=== PATIENT | female | born 1960 | race Caucasian/White ===

== ENCOUNTER 2024-11-29 12:57 | Outpatient (AMB) | payer BC, SELFPAY ==
--- NOTE | 2024-11-29 12:58 | A.OFFPC_ITS ---
Vital Signs 11/29/24 13:06 Height 5 ft 5 in Weight 139 lb BMI 23.1 BP 106/56 L Blood Pressure Location Rt brachial Position Sitting Respiration 16 Pulse 77 Pulse Source Pulse Oximeter Pulse Oximetry (%) 98 Oxygen Delivery Method Room Air Intake Visit Reasons: New pt - see comments Electronics Design Engineer Required: No Accompanied by: Self / Same As Patient Allergies glucosamine Adverse Reaction (Mild, Verified 11/29/24 13:02) Rash Tobacco use date assessed: 11/29/24 Dental Screening Dental Screen Date: 11/29/24 Did you have a dental visit in the last 12 months?: Yes Did you have a dental problem in the last 6 months where you did not have access to dental care?: No Was dental information given to patient?: Patient has dentist HPI HPI Comments History of Present Illness Details The patient is a 63-year-old female presenting with urinary tract infection symptoms. The symptoms began last Friday, fluctuating in severity, without reaching the point where urination rothman consistently. The discomfort is variable, sometimes alleviating and sometimes worsening. There has been no increased frequency, but the patient describes it as uncomfortable. She has had similar symptoms in the past treated with antibiotics, though no specific urine cultures results were relayed to her. The patient also reports persistent lower back pain, a long-standing issue she attributes to aging. This pain is not consistent with kidney stone pain or upper flank discomfort. There is no recent history of fever or chills, but the pain location is noted to be across the lower back. The patient mentions a history of heart murmur but is unaware of the specific details such as the valve involved or the type of murmur. In terms of psychological well-being, the patient mentions experiencing anxiety, predominantly related to her son's history of addiction, although he's currently in a good place. Medical History: - Heart murmur - Anxiety related to family issues Surgical History: - Tubal ligation Medications: - Red wine, 1-2 glasses, 2-3 times a wee k (as a lifestyle choice, no medication discussed) Family History: - Father had colon cancer diagnosed at a ge 53 - Brother had throat cancer - Mother had a hysterectomy for abnormal cells - Sister and possibly a brother had adul t-onset diabetes - Brother is Social: - Resides with and son, has a [facility] living [facility] - Reports mild alcohol consumption, spec ifically red wine (1-2 glasses, 2-3 times a week) - No current tobacco or drug use; had sm oked in high school - Anxiety related to son's past addictio n issues [facility] Medical History (Updated 11/29/24 @ 13:24 by Francois Smiley MD) Screening for cervical cancer Dysuria Establishing care with new doctor, encounter for Social History Housing: House Patient Tobacco Use Status: Never used Tobacco e-Cigarette/Vaping Use: Never Used service: No Current occupational status: employed 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 1. Little interest or pleasure in doing things: not at all 2. Feeling down, depressed, or hopeless: not at all 3. Trouble falling or staying asleep, or sleeping too much: not at all 4. Feeling tired or having little energy: not at all 5. Poor appetite or overeating: not at all 6. Feeling bad about yourself - or that you are a failure or have let yourself or your family down: not at all 7. Trouble concentrating on things, such as reading the newspaper or watching television: not at all 8. Moving or speaking so slowly that other people could have noticed. Or the opposite - being so fidgety or restless that you have been moving around a lot more than usual: not at all 9. Thoughts that you would be better off or of hurting yourself in some way: not at all Total score: 0 Depression Screening Interpretation: Negative Depression Screening Done: Yes 46709 - PHQ-9 Billing: Yes Source: Developed by Drs. Junito Santiago, Danita White, Kwame Giordano and colleagues, with an educational kevin from [employer]. Thrive Questionnaire Date Thrive assessed: 11/29/24 I am a: Patient What is your living situation today?: I have a steady place to live Within the past 12 months, did the food you bought not last and you didn't have the money to get more?: Never true Within the past 12 months, did you worry whether your food would run out before you got money to buy more?: Never true Do you have trouble paying for medicines?: No Do you have trouble getting transportation to medical appointments?: No Do you have trouble paying your heating and electricity bill?: No Do you have trouble taking care of your child, family member or friend?: No Do you have trouble with day-to-day activities such as bathing, preparing meals, shopping, managing finances, etc.?: No Are you currently unemployed and looking for a job?: No Are you interested in more education?: No THRIVE Score: 0 AUDIT C Alcohol Use Questionnaire (AUDIT-C) 1. How often do you have a drink containing alcohol?: 2-3 times a week 2. How many drinks containing alcohol do you have on a typical day when you are drinking?: 1 or 2 Total Score: 3 Score Reviewed/Action Taken: Yes GAYLE-7 AMB Questionnaire GAYLE-7 Date GAYLE - 7 assessed: 11/29/24 Feeling nervous, anxious, or on edge: 0 = Not at all Not being able to stop or control worryin = Not at all Worrying too much about different things: 0 = Not at all Trouble relaxin = Not at all Being so restless that it is hard to sit still: 0 = Not at all Becoming easily annoyed or irritable: 0 = Not at all Feeling afraid as if something awful might happen: 0 = Not at all Total GAYLE-7 score (0-4 normal; 5-9 mild; 10-14 moderate; 15-21 severe): 0 Source: Developed by Drs. Junito Santiago, Danita White, Kwame Giordano and colleagues, with an educational kevin from [employer]. GAYLE-7 Assessment Billing GAYLE-7 Assessment Tool: GAYLE-7 Assessment 11103 Review of Systems Const Details: - Constitutional: Denies fever, chills - Respiratory: Denies symptoms - Cardiovascular: Reports heart murmur; denies chest pain - Gastrointestinal: Reports upcoming colonoscopy; denies nausea or vomiting - Genitourinary: Reports discomfort without burning or increased frequency, denies cramping - Musculoskeletal: Reports long-term lower back pain - Neurological/Sensory: Denies headaches, vision changes, and hearing changes - Psychiatric: Reports anxiety related to family issues; denies depression All systems reviewed & are unremarkable except as reviewed in HPI and above Physical exam (Primary Care) Vital Signs: Last Vital Signs Pulse 77 09/15/25 13:06 Resp 16 11/29/24 13:06 BP 106/56 L 11/29/24 13:06 Pulse Ox 98 11/29/24 13:06 Oxygen Delivery Method Room Air 11/29/24 13:06 BMI result Body Mass Index 23.1 Tobacco/Smoking Status: Tobacco use Status Tobacco use date assessed 11/29/24 11/29/24 13:01 Patient Tobacco Use Status Never used Tobacco 11/29/24 13:08 Tobacco use type 11/29/24 13:08 e-Cigarette/Vaping Use Never Used 11/29/24 13:08 Depression Screening Interpretation: Negative Const Other: General: +Alert and oriented, Well nourished, No acute distress. Eye: Pupils are equal, round and reactive to light, Intact accommodation, Extraocular movements are intact, Normal conjunctiva, Vision unchanged. HENT: Normocephalic, Atraumatic, Tympanic membranes are clear, Normal hearing, Oral mucosa is moist, No pharyngeal erythema, Ear canals patent. Respiratory: Lungs CTA bilaterally, No wheeze, Respirations are non-labored. Cardiovascular: Regular rate, Regular rhythm, S1 auscultated, S2 auscultated, No murmur appreciated, Good pulses equal in all extremities, Normal peripheral perfusion, No edema. Gastrointestinal: Soft, Non-tender, Non-distended, Normal bowel sounds, No organomegaly. Musculoskeletal: Normal range of motion, Normal strength, No tenderness, No swelling, No deformity, Normal gait. Integumentary: Warm, Dry, Thomas, Intact. Neurologic: Alert, Oriented, Normal sensory, Normal motor function, No focal defects, Cranial Nerves II-XII are grossly intact, Normal deep tendon reflexes. Psychiatric: Cooperative, Appropriate mood & affect, Normal judgment, Anxious about son's addiction but overall mood stable. Coding Level of Care Code New Pt Prev Care 40-64y(55631) Diagnoses Establishing care with new doctor, encounter for Z76.89 Dysuria R30.0 Additional Codes PHQ-9 - 21521 - PHQ-9 Billing: Yes ([id number]) GAYLE-7 Assessment Billing - GAYLE-7 Assessment Tool: GAYLE-7 Assessment 38668 ([id number]) Assessment & Plan Assessment & Plan (1) Establishing care with new doctor, encounter for: Comment: - Obtain Baseline Labs Code(s): Z76.89 - Persons encountering health services in other specified circumstances Category: Medical (2) Dysuria: Comment: - Repeated symptoms over multiple years and tried multiple antibiotics. Will therefore obtain a UA & Culture and treat as appropriate Code(s): R30.0 - Dysuria Category: Medical Plan: Health Maintenance: - Scheduled colonoscopy on of this month - Pap smear and mammogram are overdue, need updates - Routine blood work and screening, including baseline labs, kidney function, sugars, hepatitis panel, HIV, syphilis, cholesterol, thyroid, and vitamin D levels planned Plan During the visit, I discussed the plan to perform a urine culture and sensitivity test in order to confirm and appropriately treat any urinary tract infections. I explained that frequent antibiotic use can lead to resistance, which stresses the importance of targeted treatment. In addressing the heart murmur, I noted that despite not appreciating the murmur during the exam, monitoring is important, especially if further symptoms arise. I emphasized managing anxiety through supportive care and potential counseling given her son?s situation. Encouragement was given for proper health maintenance, including completion of the colonoscopy and updates on skipped pap smears and mammograms. Instructions were provided regarding potential observation for symptoms worsening and the importance of following up based on diagnostic test results. Orders: Orders Complete Blood Count Auto Diff Today Z76.89 - Persons encountering health services in other specified circumstances Comprehensive Met. Panel Today Z. - Persons encountering health services in other specified circumstances Hemoglobin A1c Today Z76.89 - Persons encountering health services in other specified circumstances Hepatitis A,B,C Profile Today Z76.89 - Persons encountering health services in other specified circumstances HIV Ab/Ag Today Z76.89 - Persons encountering health services in other specified circumstances Lipid Panel Today Z76.89 - Persons encountering health services in other specified circumstances Syphilis Screen Today Z76.89 - Persons encountering health services in other specified circumstances UA CC w/rflx Micro + Cult Today R30.0 - Dysuria MM tomosynthesis screening BI Today Z12.31 - Encounter for screening mammogram for malignant neoplasm of breast TSH reflex Free T4 Today Z76.89 - Persons encountering health services in other specified circumstances Vitamin D 25-OH Total Today Z76.89 - Persons encountering health services in other specified circumstances Referrals RETAIL SALES PROFESSIONAL Referral Z12.4 - Encounter for screening for malignant neoplasm of cervix Patient Instructions: - Drink plenty of fluids and consider cranberry juice to manage urinary symptoms. - Monitor back pain; apply comfort measures such as heat and gentle exercises. - Attend the scheduled colonoscopy and follow up with results. - Follow up with RETAIL SALES PROFESSIONAL for Pap smear and schedule a mammogram. - Await results of urine test and other baseline labs.
[2024-11-29 13:06] VITALS: BP 106/56; PULSE 77; RESP 16; O2SAT 98; BMI 23.1
--- OUTSIDE RECORDS SUMMARY | 2024-11-29 17:56 | XMS_ITS | Encounter Summary ---
Author Organization [facility] Address [address] [place] [phone] Phone Care Team Providers Care Change Consultant Name Role Phone Christiano Carrillo MD Primary Care Provider [phone] Karen Fuentes MD Primary Care Provide r Mariel Andrews NP Primary Care Provider [phone] Encounter Details Date Type Department Care Team (Latest Contact Info) Description 10/15/2019 Transcribe Orders [facility] [address] [place] [address] Dina Guzman NP [address] [place] [address] [email or web address] Thrombocythemia, essential (Primary Dx) Social History Tobacco Use Types Packs/Day Years Used Date Smoking Tobacco: Never Assessed Comments Unknown Sex and Gender Information Value Date Recorded Sex Assigned at Not on file Legal Sex Female 9:44 PM EDT Gender Identity Not on file Sexual Orientation Not on file documented as of this encounter Plan of Treatment Upcoming Encounters Date Type Department Care Team (Late st Contact Info) Description 12/10/2024 Procedure Pass [facility] Endoscopy Admitting Dept Virtual Department [address] [place] [address] 12/10/2024 8:00 AM EDT Hospital Encounter [facility] Admitting Dept Virtual Department [address] [place] [address] Marco Vela MD [address] [address] [email or web address] 12/10/2024 8:00 AM EDT - 12/10/2024 8:30 AM EDT Surgery [facility] Endoscopy Admitting Dept Virtual Department [address] [place] [address] Marco Vela MD [address] [address] [email or web address] COLONOSCOPY Scheduled Procedures Name Priority Associated Diagnoses Date/Ti me COLONOSCOPY FH: colon cancer 12/10/2024 8:00 AM EDT ESOPHAGOGASTRODUODENOSCOPY FH: colon cancer 12/10/2024 8:00 AM EDT documented as of this encounter Results * (ABNORMAL) Comprehensive metabolic panel (10/15/2019 3:38 PM EDT) SODIUM 140 133 - 146 mmol/L [facility] POTASSIUM 4.2 3.3 - 5.1 mmol/L [facility] CHLORIDE 101 96 - 108 mmol/L [facility] CO2 26 21 - 35 mmol/L [facility] BUN 14 6 - 19 mg/dL [facility] CREATININE 0.70 0.5 - 1.5 mg/dL [facility] GLUCOSE 107(H) 70 - 99 mg/dL [facility] ALBUMIN 4.6 3.9 - 4.8 g/dL [facility] TOTAL PROTEIN 7.2 6.5 - 8.0 g/dL [facility] CALCIUM 10.0 8.4 - 10.3 mg/dL [facility] ALKALINE PHOSPHATASE 101 39 - 117 U/L [facility] TOTAL BILIRUBIN 0.2 0.0 - 1.2 mg/dL [facility] AST 21 0 - 37 U/L [facility] ALT 23 0 - 40 U/L [facility] GLOBULIN 2.6 1 - 4.8 g/dL [facility] EGFR 97 >59 mL/min/1.7 3m2 [facility] Comment:Estimated glomerular filtration rate calculated using the CKD-EPI equation. ANION GAP 17 10 - 20 mmol/L [facility] Blood 10/15/2019 3:38 PM EDT 10/15/2019 3:40 PM EDT us Dina Humphriesedgar Guzman GOLD MARKER LAB BLOOD ORDERAB LES Final Result [address] [address] * (ABNORMAL) CBC and differential (10/15/2019 3:38 PM EDT) WBC 8.26 4.00 - 11.00 K/uL [facility] Comment:Note Reference Range updates to all CBC and Differential results. RBC 4.62 3.72 - 5.30 M/uL [facility] HGB 13.8 11.4 - 15.9 g/dL [facility] Comment:Note updated Referen ce Ranges for all CBC and Differential results. HCT 40.2 34.2 - 46.8 % [facility] PLT 391 140 - 430 K/uL [facility] MCV 87.0 78.0 - 97.0 fL [facility] MCH 29.9 25.0 - 33.0 pg [facility] MCHC 34.3 32.0 - 36.0 g/dL [facility] RDW 13.0 11.0 - 16.0 % [facility] MPV 10.6 8.4 - 12.8 fl [facility] NRBC 0.00 0 /100 WBCs [facility] ABSOLUTE NRBC 0.00 0 K/uL [facility] DIFF METHOD Auto [facility] NEUTS 56.9 43.0 - 75.0 % [facility] LYMPHS 30.5 18.2 - 47.4 % [facility] MONOS 8.0 4.00 - 11.00 % [facility] EOS 2.8 0.0 - 8.0 % [facility] BASOS 1.2 0.0 - 2.0 % [facility] Granulocytes, immature (%) 0.6 0.0 - 0.9 % [facility] ABSOLUTE NEUTS 4.70 1.80 - 7.70 K/uL [facility] ABSOLUTE LYMPHS 2.52 1.00 - 3.10 K/uL [facility] ABSOLUTE MONOS 0.66 0.20 - 0.80 K/uL [facility] ABSOLUTE EOS 0.23 0.00 - 0.80 K/uL [facility] ABSOLUTE BASOS 0.10(H) 0.00 - 0.09 K/uL [facility] Granulocytes, immature 0.05 0.00 - 0.05 K/uL [facility] Blood 10/15/2019 3:38 PM EDT 10/15/2019 3:40 PM EDT us Dina Guzman GOLD MARKER LAB BLOOD ORDERAB LES Final Result Performing Organization Address City/State/[facility] Co de Phone Number [address] [address] documented in this encounter Visit Diagnoses Diagnosis Thrombocythemia, essential- Primary Essential thrombocythemia FH: colon cancer Family history of malignant neoplasm of gastrointestinal tract documented in this encounter Additional Health Concerns Infection Onset Date Last Indicated Resolved Time CoV-Risk 10/06/2019 10/07/2019 10/20/2019 1:24 AM EDT documented as of this encounter Care Teams Change Consultant Relationship Specialty Start Date End Date Christiano Carrillo MD [address] [place] [phone] [email or web address] PCP - General Family Medicine 10/15/19 03/13/21 Karen Fuentes MD [address] [place] [address] PCP - General Internal Medicine 03/14/21 11/28/24 Mariel Andrews NP [address] [place] [address] PCP - General Nurse Practitioner 11/29/24 documented as of this encounter Additional Source Comments The information contained in this document represents components of the legal health record. It is not the complete legal health record.[facility]
--- OUTSIDE RECORDS SUMMARY | 2024-11-29 17:56 | XMS_ITS | Clinical Summary ---
Author Organization [facility] Address [address] [place] [address] Phone Care Team Providers Care Director Of Slot Operations Name Role Phone Mariel Andrews TRENCH SHOVEL OPERATOR Primary Care Provider [phone] Family History Medical History Relation Comments Colon cancer Father Alzheimer's disease Mother Hypertension Mother Relation Status Comments Father Mother Social History Tobacco Use Types Packs/Day Years Used Date Smoking Tobacco: Never Assessed Education Answer Date Recorded Are you interested in more education? Not on arina e 07/12/2022 Are you concerned about learning? Not on file 07/12/2022 No 07/12/2022 No 07/12/2022 Digital Access Answer Date Recorded No 08/12/2022 No 08/12/2022 Reliable internet access at home? Not on file 08/12/2022 Device with a working camera? Not on file Comments Unknown Sex and Gender Information Value Date Recorded Sex Assigned at Not on file Legal Sex Female 9:44 PM EDT Gender Identity Not on file Sexual Orientation Not on file Last Filed Vital Signs Vital Sign Reading Time Taken Comments Blood Pressure 118/76 07/31/2016 11:33 AM EDT Pulse - - Temperature - - Respiratory Rate - - Oxygen Saturation - - Inhaled Oxygen Concentration - - Weight 67.1 kg (148 lb) 07/31/2016 11:33 AM EDT Height 167.6 cm (5' 6 ) 07/31/2016 11:33 AM EDT Body Mass Index 23.89 07/31/2016 11:33 AM EDT Plan of Treatment Upcoming Encounters Date Type Department Care Team (Late st Contact Info) Description 12/10/2024 Procedure Pass [facility] Endoscopy Admitting Dept Virtual Department [address] [place] [address] 12/10/2024 8:00 AM EDT Hospital Encounter [facility] Admitting Dept Virtual Department [address] [place] [address] Marco Vela MD [address] [address] [email or web address] 12/10/2024 8:00 AM EDT - 12/10/2024 8:30 AM EDT Surgery [facility] Endoscopy Admitting Dept Virtual Department [address] [place] [address] Marco Vela MD [address] [place] [phone] [email or web address] COLONOSCOPY Scheduled Procedures Name Priority Associated Diagnoses Date/Ti me COLONOSCOPY FH: colon cancer 12/10/2024 8:00 AM EDT ESOPHAGOGASTRODUODENOSCOPY FH: colon cancer 12/10/2024 8:00 AM EDT Medical Devices Not on file [place] [address] [place] [address] [place] [address] [place] [address] [place] [address] [place] [address] [place] [address] [place] [address] [facility] Care Teams Director Of Slot Operations Relationship Specialty Start Date End Date Mariel Andrews NP [address] [place] [address] PCP - General Nurse Practitioner 11/29/24 Additional Source Comments The information contained in this document represents components of the legal health record. It is not the complete legal health record.[facility]
--- OUTSIDE RECORDS SUMMARY | 2024-11-29 17:56 | XMS_ITS | Encounter Summary ---
Author Organization [facility] Address [address] [place] [address] Phone Care Team Providers Care Dry Folder Cloth Name Role Phone Christiano Carrillo MD Primary Care Provider [phone] Christiano Carrillo MD Primary Care Provider [phone] Karen Fuentes MD Primary Care Provide r Mariel Andrews NP Primary Care Provider [phone] Encounter Details Date Type Department Care Team (Latest Contact Info) Description 10/06/2019 Transcribe Orders Virtual Department [address] [place] [address] Dina Guzman NP [address] [place] [address] [email or web address] Fever, unspecified fever cause (Primary Dx); Cough; Myalgia; Diarrhea, unspecified type Social History Tobacco Use Types Packs/Day Years [...] Pass [facility]oscopy Admitting Dept Virtual Department [address] [place] [address] 12/10/2024 8:00 AM EDT Hospital Encounter [facility]oscopy Admitting Dept Virtual Department [address] [place] [address] Marco Vela MD [address] [address] [email or web address] 12/10/2024 8:00 AM EDT - 12/10/2024 8:30 AM EDT Surgery [facility]oscopy Admitting Dept Virtual Department [address] [place] [address] Marco Vela MD [address] [address] [email or web address] COLONOSCOPY Pending Results Name Type Priority Associated Diagnoses Date /Time COVID-19 PCR Order Lab Routine Fever, unspecified fever cause Cough Myalgia Diarrhea, unspecified type 10/07/2019 1:22 PM EDT Scheduled Procedures Name Priority Associated Diagnoses Date/Ti me COLONOSCOPY FH: colon cancer 12/10/2024 8:00 AM EDT ESOPHAGOGASTRODUODENOSCOPY FH: colon cancer 12/10/2024 8:00 AM EDT documented as of this encounter Visit Diagnoses Diagnosis Fever, unspecified fever cause- Primary Cough Myalgia Unspecified myalgia and myositis Diarrhea, unspecified type FH: colon cancer Family history of malignant neoplasm of gastrointestinal tract documented in this encounter Additional Health Concerns Infection Onset Date Last Indicated Resolved Time CoV-Risk 10/06/2019 10/07/2019 10/20/2019 1:24 AM EDT documented as of this encounter Care Teams Dry Folder Cloth Relationship Specialty Start Date End Date Christiano Carrillo MD [email or web address] PCP - General 03/20/17 10/14/19 Christiano Carrillo MD [address] [place] [phone] [email or web address] PCP - General Family Medicine 10/15/19 03/13/21 Karen Fuentes MD [address] [place] [address] PCP - General Internal Medicine 03/14/21 11/28/24 Mariel Andrews NP [address] [place] [address] [place] [address] PCP - General Nurse Practitioner 11/29/24 documented as of this encounter Additional Source Comments The information contained in this document represents components of the legal health record. It is not the complete legal health record.[facility]
--- OUTSIDE RECORDS SUMMARY | 2024-11-29 17:56 | XMS_ITS | Encounter Summary ---
Author Organization [facility] Address [address] [place] [address] Phone Care Team Providers Care Pan Pusher Name Role Phone Karen Fuentes MD Primary Care Provide r Mariel Andrews NP Primary Care Provider [phone] Encounter Details Date Type Department Care Team (Latest Contact Info) Description 11/02/2021 Transcribe Orders Virtual Department [address] [place] [place] [phone] Ruth Lerma NP [address] [place] [address] [email or web address] (dyspnea on exertion) (Primary Dx) Social History Tobacco Use Types [...] Pass [facility] Admitting Dept Virtual Department [address] [place] [address] 12/10/2024 8:00 AM EDT Hospital Encounter [facility] Admitting [facility] Virtual Department [address] [place] [address] Marco Vela MD [address] [address] 12/10/2024 8:00 AM EDT - 12/10/2024 8:30 AM EDT Surgery [facility]oscopy Admitting Dept Virtual Department [address] [place] [address] Marco Vela MD [address] [address] [email or web address] COLONOSCOPY Scheduled Procedures Name Priority Associated Diagnoses Date/Ti me COLONOSCOPY FH: colon cancer 12/10/2024 8:00 AM EDT ESOPHAGOGASTRODUODENOSCOPY FH: colon cancer 12/10/2024 8:00 AM EDT documented as of this encounter Visit Diagnoses Diagnosis TONG (dyspnea on exertion)- Primary Other dyspnea and respiratory abnormality FH: colon cancer Family history of malignant neoplasm of gastrointestinal tract documented in this encounter Care Teams Pan Pusher Relationship Specialty Start Date End Date Karen Fuentes MD [address] [place] [address] PCP - General Internal Medicine 03/14/21 11/28/24 Mariel Andrews NP [address] [place] [address] [place] [address] PCP - General Nurse Practitioner 11/29/24 documented as of this encounter Additional Source Comments The information contained in this document represents components of the legal health record. It is not the complete legal health record.[facility]
== END 2024-11-29 13:25 | disposition home or self-care (01) ==
LOC: HO.HMCHD 12:57
PROVIDERS: PCP Student in an Organized Health Care Education/Training Program; Visit Provider Student in an Organized Health Care Education/Training Program
DX: Z00.00 Encounter for general adult medical examination without abnormal findings (principal); R30.0 Dysuria; Z76.89 Persons encountering health services in other specified circumstances

== ENCOUNTER 2024-11-29 12:57 | Outpatient (REF) | payer BC, SELFPAY ==
[2024-11-29 13:46] LABS: MANUAL DIFF FLAG NO
[2024-11-29 13:54] LABS: Hematocrit 38.1 % (37.0-47.0); Hemoglobin 13.4 g/dl (12.0-16.0); Imm Gran Abs Auto 0.02 X10*3/uL (0.00-0.03); Imm Gran Pct Auto 0.2 % (0.0-0.4); Lymphocytes Absolute Auto 1.6 X10*3/uL (1.2-4.9); Mean Corpuscular HGB Conc 35.2 g/dl (31.0-35.0); Mean Corpuscular Hemoglobin 30.7 pg (27.0-33.0); Mean Corpuscular Volume 87.4 fL (80.0-98.0); NRBC Abs Auto 0.000 X10*3/uL (0.0-0.012); NRBC Pct Auto 0.0 /100WBC (0.0-0.2); Platelet Count 200 X10*3/uL (160-400); Red Blood Count 4.36 X10*6/uL (4.20-5.50); White Blood Count 8.9 X10*3/uL (4.8-10.8)
[2024-11-29 14:04] LABS: Appearance Urine Clear; Glucose Urine UA Negative (Negative); PH 6.5 (5.0-9.0); Specific Gravity - Urine <= 1.005 (1.005-1.025); UMIC TRIGGER UACC YES
[2024-11-29 14:16] LABS: UACC Culture Trigger YES
[2024-11-29 14:40] LABS: Alanine Aminotransferase 25 U/L (0-31); Albumin Level 4.5 g/dL (3.5-5.0); Alkaline Phosphatase 89 U/L (39-117); Anion Gap 11 (12-20); Aspartate Amino Transferase 34 U/L (5-31); Blood Urea Nitrogen 8 mg/dL (9-16); Calcium 9.5 mg/dL (8.4-10.2); Carbon Dioxide 26 mmol/L (22-29); Chloride 107 mmol/L (96-108); Cholesterol 152 mg/dL (<200); Estimated Glomerular Filt Rate > 60; HDL Cholesterol 49 mg/dL (>40); Potassium 4.0 mmol/L (3.3-5.1); Sodium 140 mmol/L (135-145); Total Protein 7.1 g/dL (6.5-8.0); Triglycerides 141 mg/dL (<150)
[2024-11-30 08:27] LABS: HBS Num1 77.29 mIU/mL (0-7.99); HBc Num1 0.10 S/CO (0.00-0.79); HBsAGNum1 0.36 S/CO (0.00-0.99); HIV Num 1 0.07 S/CO (0.00-0.99); Hepatitis A Antibody IgM 0.13 Index (0-0.79); Hepatitis B Surface Antigen Negative (Negative); ~HepC Num1 0.10 S/CO (0.00-0.79); ~Hepatitis A Antibody IgM Nonreactive (Nonreactive); ~Hepatitis B Surface Antibody REACTIVE (Nonreactive); ~Hepatitis C Antibody Nonreactive (Nonreactive)
[2024-11-30 08:59] LABS: Syphilis Screen Nonreactive (Nonreactive)
== END 2024-11-29 12:58 | disposition home or self-care (01) ==
LOC: HO.LAB 12:57
PROVIDERS: PCP Student in an Organized Health Care Education/Training Program; Visit Provider Student in an Organized Health Care Education/Training Program
DX: Z76.89 Persons encountering health services in other specified circumstances (principal); R30.0 Dysuria
CPT/HCPCS: 36415; 80053; 80061; 81001; 81003; 82306; 83036; 84443; 85025; 86704; 86706; 86709; 86780; 86803; 87086; 87088; 87186; 87340; 87389; 96127

== ENCOUNTER 2025-02-08 06:57 | Day surgery (SDC) | payer BC, SELFPAY ==
[2025-02-04 13:57] VITALS: BMI 23.1
[2025-02-08 07:12] VITALS: BMI 23.0
[2025-02-08] MEDS: Lactated Ringers 1,000 ML 100 ML IVCONT (07:18)
[2025-02-08 07:25] VITALS: BP 134/70; PULSE 76; RESP 18; TEMP 36.7; O2SAT 98
--- NOTE | 2025-02-08 07:50 | MHC.SHP ---
Pre-Procedural Eval Section A - 24 Hr Update-Section A only Date of Service: 02/08/25 The patient is an INPATIENT: No The patient has been examined within 24 hours of the surgical procedure. The History & Physical has been completed within 30 days and I have reviewed it.: No Section B - Complete if H&P > 30 days Chief Complaint: screening Details of Present Illness: Fam hx of CRC in father in his 50s Present Medications: see Short Stay Collaborative assessment Medical History: No relevant PMH Allergies: Allergies Allergy/AdvReac Type Severity Reaction Status Date / Time glucosamine AdvReac Mild Rash Verified 02/08/25 07:14 Review of Systems Review of Systems Comment: Ten point ROS negative Exam Exam Comment: Gen appear: No acute distress HEENT: no icterus Chest: No overt resp distress Abd: soft, nontender, nondistended Psych: Stable affect, answering questions appropriately Neuro: A/Ox3 noted to move all extremities spontaneously Ext: no peripheral edema Plan Diagnosis/Plan: Unchanged I have reviewed the history and physical and performed a pertinent physical examination on my patient. No changes have occurred unless specified. Time Spent With Patient Time: Total time managing care of this patient today ____ minutes.
--- NOTE | 2025-02-08 08:15 | HO.ANESPROP2 ---
Documented by User: Rekha Brian NP 02/07/25 11:47 HPI - Anesthesia Eval Consult details Narrative: 64 yr old female for colonoscopy PMFSH Active Problems Active Problems: All Active Problems Establishing care with new doctor, encounter for (Acute) Screening for cervical cancer (Acute) Dysuria (Acute) Past Medical History Medical History Screening for cervical cancer Dysuria Surgical History Surgical History (Updated 02/08/25 @ 07:14 by Kavita Jaramillo RN) Hx of colonoscopy Hx of tubal ligation Social History Social History Housing: House Are you a primary neurocritical care physician to a significant other at home: No Do you presently have visiting nurse or other home services: No Patient Tobacco Use Status: Former Tobacco user e-Cigarette/Vaping Use: Never Used Have you been hit, kicked, punched, or otherwise hurt by someone within the past year? 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 Allergies Allergy/AdvReac Type Severity Reaction Status Date / Time glucosamine AdvReac Mild Rash Verified 02/08/25 07:14 Home Medications ?Medication ?Instructions ?Recorded ?Confirmed ?Last Taken ?Type cholecalciferol (vitamin D3) 25 25 mcg PO DAILY 11/29/24 02/04/25 Unknown History mcg (1,000 unit) capsule d-mannose 500 mg capsule 500 mg PO DAILY 11/29/24 02/04/25 Unknown History multivitamin 1 tab PO DAILY 11/29/24 02/04/25 Unknown History omega 0-tqf-ezw-fish oil 300 1 cap PO DAILY 11/29/24 02/04/25 02/06/25 History mg-1,000 mg capsule (Fish Oil) Exam Height,Weight and Vital Signs: Height 5 ft 5 in Weight 63.049 kg Pertinent Lab Results Pertinent Lab Results: Laboratory Tests 11/29/24 13:43 WBC 8.9 RBC 4.36 Hgb 13.4 Hct 38.1 Plt Count 200 Sodium 140 Potassium 4.0 BUN 8 L Creatinine 0.64 Documented by User: Susannah Pak DO 02/08/25 08:16 [facility] Past Medical History Medical History Screening for cervical cancer Dysuria Family History Family history of problems with anesthesia: No Surgical History Surgical History (Updated 02/08/25 @ 07:14 by Kavita Jaramillo RN) Hx of colonoscopy Hx of tubal ligation History of Problems with Anesthesia: No Social History Social History Housing: House Are you a primary neurocritical care physician to a significant other at home: No Do you presently have visiting nurse or other home services: No Patient Tobacco Use Status: Former Tobacco user e-Cigarette/Vaping Use: Never Used Have you been hit, kicked, punched, or otherwise hurt by someone within the past year? 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 Allergies Allergy/AdvReac Type Severity Reaction Status Date / Time glucosamine AdvReac Mild Rash Verified 02/08/25 07:14 Home Medications ?Medication ?Instructions ?Recorded ?Confirmed ?Last Taken ?Type cholecalciferol (vitamin D3) 25 25 mcg PO DAILY 11/29/24 02/04/25 Unknown History mcg (1,000 unit) capsule d-mannose 500 mg capsule 500 mg PO DAILY 11/29/24 02/04/25 Unknown History multivitamin 1 tab PO DAILY 11/29/24 02/04/25 Unknown History omega 9-pfx-opv-fish oil 300 1 cap PO DAILY 11/29/24 02/04/25 02/06/25 History mg-1,000 mg capsule (Fish Oil) Exam Exam Date and Time: 02/08/25 0815 Height,Weight and Vital Signs: Height 5 ft 5 in Weight 63.049 kg Height 5 ft 5 in Weight 62.596 kg Vital Signs Temperature 98.1 F 02/08/25 07:25 Pulse Rate 76 02/08/25 07:25 Respiratory Rate 18 02/08/25 07:25 Blood Pressure 134/70 02/08/25 07:25 Pulse Oximetry 98 02/08/25 07:25 Oxygen Delivery Method Room Air 02/08/25 07:25 Temperature 98.1 F 02/08/25 07:25 Pulse Rate 76 02/08/25 07:25 Respiratory Rate 18 02/08/25 07:25 Blood Pressure 134/70 02/08/25 07:25 Pulse Oximetry 98 02/08/25 07:25 Oxygen Delivery Method Room Air 02/08/25 07:25 Airway Mallampati Class: I TM Dist: >3cm Neck ROM: Full Loose/Missing/Broken Teeth: No (patient denies any loose or broken teeth) Heart: S1S2 Lungs: CTAB Assessment and Plan Assessment Anesthesia Assessment: Anesthesia Plan Discussed and Chart Reviewed Final Anesthetic Review Family History of Problems with Anesthesia: No History of Problems with Anesthesia: No NPO: Yes ASA Class: I Final Preanesthetic Review: No Changes in Pt Med Stat, Meds/Allgs Chart Reviewed, Consent Obtained/Reviewed and Anes Risks/Benef Reviewed Patient Risk: Low Procedure Risk: Low Anesthetic Plan Anesthetic Plan: MAC: and Agree w/ Assess. and Plan Disposition: Standard PACU
--- NOTE | 2025-02-08 08:56 | P.OPN-COLO_ITS ---
Colonoscopy Operative Note Operative Note Date of Service: 02/08/25 Narrative: Procedure: Colonoscopy Indication: Screening, fam hx of CRC Endoscopist: Valerie Samaniego MD Anesthesia Provider: Yosvany Barrett CRNA Anesthesia type: MAC Instrument: Olympus [id number]-[id number] Consent: Indication, risks vs benefits, and alternatives were discussed with the patient who gave written informed consent to proceed. EKG, pulse, pulse oximetry and blood pressure were monitored throughout the procedure. Please see anesthesia flowsheet. Procedure: The patient was brought to the procedure room and placed in the left lateral decubitus position. IV medications were administered by the anesthesia provider in attendance. A digital rectal exam was performed which was normal. A distal attachment cap was affixed to the tip of the colonoscope which was then inserted through the anus and advanced through the colon to the cecum at 75 cm,and terminal ileum. Appendiceal orifice and ileocecal valve were identified. Mucosa was carefully examined under high definition white light as the instrument was slowly withdrawn in a retrograde panoramic fashion. Retroflexion was performed in rectum. The procedure was not difficult. There were no immediate obvious complications. The quality of the prep was BBPS: 3+2+3 = adequate Withdrawal time 15 minutes. Limitations: No limitations. Findings: Mucosa: Normal to cecum and terminal ileum. Protruding lesions: * 1 sessile polyp of size 3 mm in transverse colon. Cold forceps polypectomy was performed. The polyp was completely removed and retrieved. * Medium internal hemorrhoids without stigmata of recent bleeding. Excavated lesions: * Moderate diverticulosis of sigmoid colon. Impression: 1. Normal colon and terminal ileum mucosa 2. Total of 1 polyp removed 3. Diverticulosis 4. Internal hemorrhoids Recommendations: - Follow path results. - Repeat colonoscopy in 5 years due to family history.
[2025-02-08 09:00] VITALS: BP 98/52; PULSE 80; RESP 12; TEMP 36.2; O2SAT 97
[2025-02-08 09:05] VITALS: BP 103/55; PULSE 88; RESP 14; O2SAT 99
[2025-02-08 09:10] VITALS: BP 119/67; PULSE 80; RESP 12; O2SAT 98
[2025-02-08 09:15] VITALS: BP 121/69; PULSE 69; RESP 14; TEMP 36.2; O2SAT 99
== END 2025-02-08 09:40 | disposition home or self-care (01) ==
PROVIDERS: PCP Student in an Organized Health Care Education/Training Program; Visit Provider Internal Medicine
PROC: 0DJD8ZZ Inspection of Lower Intestinal Tract, Via Natural or Artificial Opening Endoscopic (ICD-10-PCS; CPT 45378; principal; 2025-02-08 08:20)
DX: Z12.11 Encounter for screening for malignant neoplasm of colon (principal); Z80.0 Family history of malignant neoplasm of digestive organs; K64.8 Other hemorrhoids; K57.30 Diverticulosis of large intestine without perforation or abscess without bleeding; K63.5 Polyp of colon
CPT/HCPCS: 45380; 88305; J2003; J2704

== ENCOUNTER → 2025-02-08 06:57 | Outpatient (BNV) | payer BC, SELFPAY | PROVIDERS: PCP Student in an Organized Health Care Education/Training Program; Visit Provider Internal Medicine | DX: Z12.11 Encounter for screening for malignant neoplasm of colon (principal); K63.5 Polyp of colon; K57.30 Diverticulosis of large intestine without perforation or abscess without bleeding; K64.8 Other hemorrhoids | CPT/HCPCS: 45380 ==

== ENCOUNTER 2025-03-15 13:53 | Outpatient (AMB) | payer BC, SELFPAY ==
--- NOTE | 2025-03-15 14:00 | A.OFFPC_ITS ---
Vital Signs 03/15/25 14:03 Height 5 ft 5.5 in Weight 142 lb 2 oz BMI 23.3 BP 122/76 Blood Pressure Location Lt brachial Position Sitting Respiration 16 Pulse 73 Pulse Source Pulse Oximeter Temp 97.1 F Temp Source Temporal Artery Scan Pulse Oximetry (%) 99 Oxygen Delivery Method Room Air Intake Visit Reasons: Pain on left hand thumb joint. Employee Relation Manager Required: No Accompanied by: Self / Same As Patient Allergies glucosamine Adverse Reaction (Mild, Verified 03/15/25 14:01) Rash Medication List - Last Reconciled 03/15/25 by Francois Smiley MD cholecalciferol (vitamin D3) 25 mcg PO DAILY d-mannose 500 mg PO DAILY multivitamin 1 tab PO DAILY omega 5-sbl-ndf-fish oil 300-1,000 mg (Fish Oil) 1 cap PO DAILY Tobacco use date assessed: 11/29/24 Dental Screening Dental Screen Date: 11/29/24 HPI HPI Comments History of Present Illness Details History of Present Illness The patient is a 64 year old female presenting with left thumb pain. The pain started approximately two to three months ago and is located at the base of the left thumb. She rates the pain as a 5 out of 10 and notes it is worse at night. The pain is exacerbated by activities that involve bending the thumb inward, such as putting on gloves, or extending the thumb all the way, and is particularly bothersome when she plays the trombone. She denies any specific injury or fall on the hand. The patient has not tried any analgesics like Tylenol or ibuprofen as the pain has not been severe enough, and she has not used any splints. In November, the patient had dysuria and was diagnosed with a urinary tract infection secondary to E. coli, which resolved after a course of antibiotics. Her blood work from that time was noted to be clean, with normal cholesterol and a vitamin D level of 43. She currently takes omega-3, vitamin D, a multivitamin, D-mannose, and occasional lavender. Medical History: - Urinary tract infection due to E. coli , resolved with antibiotics. Medications: - [place]-3 - Vitamin D - Multivitamin - D-mannose - Lavender, occasional Diagnostic Results: - Blood work (November): Noted as clean and stellar. - Vitamin D level (November): 43. - Cholesterol (November): Normal. - Urinalysis (November): Positive for l eukocyte esterase. - Urine culture (November): Positive fo r E. coli. Social History - Hobbies: Plays trombone in a band. - Diet: Reports having a healthy diet. 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 How often do you have a drink containing alcohol?: Monthly or less 2. How many drinks containing alcohol do you have on a typical day when you are drinking?: 1 or 2 3. How often do you have six or more drinks on one occasion?: Never Total Score: 1 GAYLE-7 AMB Questionnaire GAYLE-7 Date GAYLE - 7 assessed: 11/29/24 Source: Developed by Drs. Junito Santiago, Danita White, Kwame Giordano and colleagues, with an educational kevin from [employer] Review of Systems Narrative Review of Systems - Musculoskeletal: Reports pain at the base of the left thumb for the past 2-3 months, rated 5/10. The thumb sometimes looks swollen. Denies pain with raising arms. - Neurological: Denies tingling in the fingers or weakness in the hands. - Genitourinary: Denies current dysuria or other urinary symptoms; had a recent UTI which has resolved. All systems reviewed & are unremarkable except as reviewed in HPI and above Physical exam (Primary Care) Vital Signs: Last Vital Signs Temp 97.1 F 03/15/25 14:03 Pulse 73 03/15/25 14:03 Resp 16 03/15/25 14:03 BP 122/76 03/15/25 14:03 Pulse Ox 99 03/15/25 14:03 Oxygen Delivery Method Room Air 03/15/25 14:03 BMI result Body Mass Index 23.3 Tobacco/Smoking Status: Tobacco use Status Tobacco use date assessed 11/29/24 03/15/25 14:02 Patient Tobacco Use Status Former Tobacco user 03/15/25 14:02 Tobacco use type 12/03/24 11:09 e-Cigarette/Vaping Use Never Used 03/15/25 14:02 Thrive Assessment: Date of Thrive Assessment Date Thrive assessed 11/29/24 03/15/25 14:02 Narrative Physical Exam General: +Alert and oriented, Well nourished, No acute distress. Eye: Pupils are equal, round and reactive to light, Intact accommodation, Extraocular movements are intact, Normal conjunctiva, Vision unchanged. HENT: Normocephalic, Atraumatic, Tympanic membranes are clear, Normal hearing, Oral mucosa is moist, No pharyngeal erythema, Ear canals patent. Respiratory: Lungs CTA bilaterally, No wheeze, Respirations are non-labored. Cardiovascular: Regular rate, Regular rhythm, S1 auscultated, S2 auscultated, No murmur, Good pulses equal in all extremities, Normal peripheral perfusion, No edema. Gastrointestinal: Soft, Non-tender, Non-distended, Normal bowel sounds, No organomegaly. Musculoskeletal: Normal range of motion, Normal strength, Tenderness at the base of the left thumb, No swelling, No deformity, Normal gait. Integumentary: Warm, Dry, [place], Intact. Neurologic: Alert, Oriented, Normal sensory, Normal motor function, No focal defects, Cranial Nerves II-XII are grossly intact, Normal deep tendon reflexes. Psychiatric: Cooperative, Appropriate mood & affect, Normal judgment. Office Procedures Flu Questionnaire Does the patient have a severe egg allergy?: No Does the patient have severe life threatening allergies?: No Does the patient have a fever or illness today?: No Has the patient ever had Guillain-[place] Syndrome?: No Has the patient ever had any past reaction to a flu shot?: No Immunizations Fluarix [id number] (PF) 45 mcg (15 mcg x 3)/0.5 mL IM syringe Performing Provider: Francois Smiley MD Performing Location: [facility] Administered by: Francois Smiley MD on 03/15/25 14:31 Dose Route Admin Location Dispensed Lot Number Expiration Date [facility] [employer] 0.5 mL IM Left Deltoid 0.5 mL [id number] 09/13/25 [id number] Disconnect VIS Given Date VIS Provided VIS Publication Date 03/15/25 Single Vaccine 24 Eligibility Eligibility Date Funding Source Not [facility] Eligible 03/15/25 Private Coding Level of Care Code Est Pt Level 4 (84901) Diagnoses Left hand pain M79.642 Dysuria R30.0 Assessment & Plan Assessment & Plan (1) Left hand pain: Comment: - The patient presents with a 2-3 month history of pain at the base of her left thumb, rated 5/10 and aggravated by specific movements like playing the trombone. - Examination reveals point tenderness. - The differential diagnosis includes arthritis, tendonitis, or an occult fract ure, despite a lack of recalled trauma. - Plan includes an X-ray of the left hand and wrist to assess for osseous abnormalities. - The patient is also referred to a hand specialist for further evaluation and potential management, such as injections. - Home care recommendations include icing the affected area and performing gentle stretching exercises. Code(s): M79.642 - Pain in left hand Category: Medical (2) Dysuria: Comment: - The patient had a recent UTI caused by E. coli, which has fully resolved following a course of antibiotics. - No further intervention is required at this time. Code(s): R30.0 - Dysuria Category: Medical Plan: Health Maintenance: - Vaccination: Influenza vaccine administered. - Vaccination counseling: Recommended COVID-19 vaccine. - Supplement use: Discussed that supplements such as multivitamins and vitamin D are not strictly necessary with a healthy diet and normal vitamin D levels. - Follow-up: Scheduled for an annual physical in November. Patient was informed and verbally consented to the use of an ambient scribe for clinic note documentation during this visit. Plan I discussed my concern regarding the tenderness at the base of the patient's left thumb, noting that the differential includes trauma, arthritis, or tendon involvement. I explained the plan to order an X-ray of the hand and wrist to rule out a fracture and to place a referral to a hand specialist, whom I described as experts who could offer further treatments like injections if necessary. We reviewed her excellent lab work from November and discussed that supplements like multivitamins are not essential with a healthy diet, though she is welcome to continue them. We discussed vaccinations, and she agreed to receive the flu shot, which I administered. I advised her to follow up in November for her physical but to call if anything arises sooner. Orders: Orders XR hand LT min 3V Today M79.642 - Pain in left hand XR wrist LT w scaphoid Today M79.642 - Pain in left hand Influenza [id number] Immunization Today Z23 - Encounter for immunization XR wrist LT min 3V Today M79.642 - Pain in left hand Referrals Hand Surgery Referral M79.642 - Pain in left hand Patient Instructions: - Please go to the radiology department for a walk-in X-ray of your left hand and wrist; the order has been placed. - Apply ice to your left thumb to help with pain. - Try to do gentle movement and stretching exercises with your hand. - A hand specialist's office will contact you to schedule an appointment for further evaluation. - You may experience significant soreness in your arm from the flu shot; this is a normal reaction. - Your annual physical is scheduled for November, but please call the office if you need anything before then. - I will message you through the patient portal with your X-ray results.
[2025-03-15 14:03] VITALS: BP 122/76; PULSE 73; RESP 16; TEMP 36.2; O2SAT 99; BMI 23.3
--- OUTSIDE RECORDS SUMMARY | 2025-03-15 17:41 | XMS_ITS | Encounter Summary ---
Author Organization [facility] Address [address] [address] Phone Care Team Providers Care Change House Attendant Name Role Phone Christiano Carrillo MD Primary Care Provider [phone] Christiano Carrillo MD Primary Care Provider [phone] Karen Fuentes MD Primary Care Provide r Mariel Andrews NP Primary Care Provider [phone] Pcp, Unknown Primary Care Provider Unavailabl e Dina Guzman NP Primary Care Pro vider Encounter Details Date Type Department Care Team (Latest Contact Info) Description 10/06/2019 Transcribe Orders Virtual Department [address] [place] [address] Dina Guzman NP [address] [place] [address] [email or web address] Fever, unspecified fever cause (Primary Dx); Cough; Myalgia; Diarrhea, unspecified type Social History Tobacco Use Types Packs/Day Years Used Date Smoking Tobacco: Never Assessed Comments Unknown Sex and Gender Information Value Date Recorded Sex Assigned at Not on file Legal Sex Female 9:44 PM EDT Gender Identity Not on file Sexual Orientation Not on file documented as of this encounter Plan of Treatment Pending Results Name Type Priority Associated Diagnoses Date /Time COVID-19 PCR Order Lab Routine Fever, unspecified fever cause Cough Myalgia Diarrhea, unspecified type 10/07/2019 1:22 PM EDT documented as of this encounter Visit Diagnoses Diagnosis Fever, unspecified fever cause- Primary Cough Myalgia Unspecified myalgia and myositis Diarrhea, unspecified type documented in this encounter Additional Health Concerns Infection Onset Date Last Indicated Resolved Time CoV-Risk 10/06/2019 10/07/2019 10/20/2019 1:24 AM EDT documented as of this encounter Care Teams Change House Attendant Relationship Specialty Start Date End Date Christiano Carrillo MD [email or web address] PCP - General 03/20/17 10/14/19 Christiano Carrillo MD [address] [place] [phone] [email or web address] PCP - General Family Medicine 10/15/19 03/13/21 Karen Fuentes MD [address] [place] [address] PCP - General Internal Medicine 03/14/21 11/28/24 Mariel Andrews NP [address] [place] [phone] PCP - General Nurse Practitioner 11/29/24 12/06/24 Pcp, Unknown PCP - General 12/07/24 12/07/24 Dina Guzman NP [address] [place] [address] [email or web address] PCP - General Nurse Practitioner 12/08/24 documented as of this encounter Additional Source Comments The information contained in this document represents components of the legal health record. It is not the complete legal health record.[facility]
--- OUTSIDE RECORDS SUMMARY | 2025-03-15 17:41 | XMS_ITS | Encounter Summary ---
Author Organization [facility] Address [address] [facility] [address] [place] [phone] Phone Care Team Providers Care Barrel Filler Name Role Phone Dina Guzman NP Primary Care Pro vider Encounter Details Date Type Department Care Team (Late st Contact Info) Description 12/10/2024 Procedure Pass [facility] Endoscopy Admitting Dept Virtual Department [address] [place] [address] Social History Tobacco Use Types Packs/Day Years [...] as of this encounter Plan of Treatment Not on file documented as of this encounter Visit Diagnoses Not on filedocumented in this encounter Care Teams Barrel Filler Relationship Specialty Start Date End Date Dina Guzman NP [address] [facility] [address] [email or web address] PCP - General Nurse Practitioner 12/08/24 documented as of this encounter Additional Source Comments The information contained in this document represents components of the legal health record. It is not the complete legal health record[facility]
--- OUTSIDE RECORDS SUMMARY | 2025-03-15 17:41 | XMS_ITS | Encounter Summary ---
Author Organization [facility] Address [address] [facility] [address] [place] [address] Phone Care Team Providers Care Mat Sewer Name Role Phone Christiano Carrillo MD Primary Care Provider [phone] Karen Fuentes MD Primary Care Provide r Mariel Andrews GUEST RELATIONS OFFICER Primary Care Provider [phone] Pcp, Unknown Primary Care Provider Dina Stinson NP Primary Care Pro vider Encounter Details Date Type Department Care Team (Latest Contact Info) Description 10/15/2019 Transcribe Orders [facility] Phleb Main [address] [place] [address] Dina Guzman NP [address] [place] [address] [email or web address] Thrombocythemia, essential (Primary Dx) Social History Tobacco [...] on file documented as of this encounter Results * (ABNORMAL) Comprehensive metabolic panel (10/15/2019 3:38 PM EDT) SODIUM 140 133 - 146 mmol/L [facility] POTASSIUM 4.2 3.3 - 5.1 mmol/L [facility] CHLORIDE 101 96 - 108 mmol/L [facility] CO2 26 21 - 35 mmol/L [facility] BUN 14 6 - 19 mg/dL [facility] CREATININE 0.70 0.5 - 1.5 mg/dL [facility] GLUCOSE 107(H) 70 - 99 mg/dL [facility] ALBUMIN 4.6 3.9 - 4.8 g/dL [facility] TOTAL PROTEIN 7.2 6.5 - 8.0 g/dL [facility] CALCIUM 10.0 8.4 - 10.3 mg/dL [facility] ALKALINE PHOSPHATASE 101 39 - 117 U/L [facility] TOTAL BILIRUBIN 0.2 0.0 - 1.2 mg/dL [facility] AST 21 0 - 37 U/L [facility] ALT 23 0 - 40 U/L [facility] GLOBULIN 2.6 1 - 4.8 g/dL [facility] EGFR 97 >59 mL/min/1.7 3m2 [facility] Comment:Estimated glomerular filtration rate calculated using the CKD-EPI equation. ANION GAP 17 10 - 20 mmol/L [facility] Blood 10/15/2019 3:38 PM EDT 10/15/2019 3:40 PM EDT us Dina Guzman GUEST RELATIONS OFFICER LAB BLOOD BKR ORD ERABLES Final Result [address] [id number] * (ABNORMAL) CBC and differential (10/15/2019 3:38 PM EDT) [facility] WBC 8.26 4.00 - 11.00 K/uL [facility] Comment:Note Reference Range updates to all CBC and Differential results. RBC 4.62 3.72 - 5.30 M/uL [facility] HGB 13.8 11.4 - 15.9 g/dL [facility] Comment:Note updated Referen ce Ranges for all CBC and Differential results. HCT 40.2 34.2 - 46.8 % [facility] PLT 391 140 - 430 K/uL [facility] MCV 87.0 78.0 - 97.0 fL [facility] MCH 29.9 25.0 - 33.0 pg [facility] MCHC 34.3 32.0 - 36.0 g/dL [facility] RDW 13.0 11.0 - 16.0 % [facility] MPV 10.6 8.4 - 12.8 fl [facility] NRBC 0.00 0 /100 WBCs [facility] ABSOLUTE NRBC 0.00 0 K/uL [facility] DIFF METHOD Auto [facility] NEUTS 56.9 43.0 - 75.0 % [facility] LYMPHS 30.5 18.2 - 47.4 % [facility] MONOS 8.0 4.00 - 11.00 % [facility] EOS 2.8 0.0 - 8.0 % [facility] BASOS 1.2 0.0 - 2.0 % [facility] Granulocytes, immature (%) 0.6 0.0 - 0.9 % [facility] ABSOLUTE NEUTS 4.70 1.80 - 7.70 K/uL [facility] ABSOLUTE LYMPHS 2.52 1.00 - 3.10 K/uL [facility] ABSOLUTE MONOS 0.66 0.20 - 0.80 K/uL [facility] ABSOLUTE EOS 0.23 0.00 - 0.80 K/uL [facility] ABSOLUTE BASOS 0.10(H) 0.00 - 0.09 K/uL [facility] Granulocytes, immature 0.05 0.00 - 0.05 K/uL [facility] Blood 10/15/2019 3:38 PM EDT 10/15/2019 3:40 PM EDT us Dina Guzman GUEST RELATIONS OFFICER LAB BLOOD BKR ORD ERABLES Final Result [facility] [address] [place] [address] documented in this encounter Visit Diagnoses Diagnosis Thrombocythemia, essential- Primary Essential thrombocythemia documented in this encounter Additional Health Concerns Infection Onset Date Last Indicated Resolved Time CoV-Risk 10/06/2019 10/07/2019 10/20/2019 1:24 AM EDT documented as of this encounter Care Teams Mat Sewer Relationship Specialty Start Date End Date Christiano Carrillo MD [address] [place] [phone] [email or web address] PCP - General Family Medicine 10/15/19 03/13/21 Karen Fuentes MD [address] [place] [phone] PCP - General Internal Medicine 03/14/21 11/28/24 Mariel Andrews NP [address] [place] [phone] PCP - General Nurse Practitioner 11/29/24 12/06/24 Pcp, Unknown PCP - General 12/07/24 12/07/24 Dina Guzman NP [address] [place] [phone] [email or web address] PCP - General Nurse Practitioner 12/08/24 documented as of this encounter Additional Source Comments The information contained in this document represents components of the legal health record. It is not the complete legal health record.[facility]
--- OUTSIDE RECORDS SUMMARY | 2025-03-15 17:41 | XMS_ITS | Clinical Summary ---
Author Organization [facility] Address [address] [place] [phone] Phone Care Team Providers Care Senior Telecommunications Specialist Name Role Phone Dina Guzman NP Primary Care Pro vider Family History Medical History Relation Comments Colon [...] 07/31/2016 11:33 AM EDT Plan of Treatment Not on file Medical Devices Not on file [place] [address] [place] [address] [place] [address] [place] [address] [place] [address] [place] [address] [place] [address] [place] [address] [place] [address] [place] [address] Care Teams Senior Telecommunications Specialist Relationship Specialty Start Date End Date Dina Guzman NP [address] [place] [phone] [email or web address] PCP - General Nurse Practitioner 12/08/24 Additional Source Comments The information contained in this document represents components of the legal health record. It is not the complete legal health record.[facility]
--- OUTSIDE RECORDS SUMMARY | 2025-03-15 17:41 | XMS_ITS | Encounter Summary ---
Author Organization [facility] Address [address] [place] [address] [place] [phone] Phone Care Team Providers Care Papier Mache Molder Name Role Phone Dina Guzman GREIGE GOODS EXAMINER Primary Care Pro vider Reason for Visit * Auth/Cert (Routine) Specialty Diagnoses / Procedures Referred By Juliane sarmiento Referred To Contact Diagnoses FH: colon cancer FH: colon cancer [Z80.0] Procedures ND COLONOSCOPY FLX DX W/COLLJ SPEC WHEN PFRMD ND COLONOSCOPY W/BIOPSY SINGLE/MULTIPLE ND COLSC FLX W/RMVL OF TUMOR POLYP LESION SNARE TQ ND ESOPHAGOGASTRODUODENOSCOPY TRANSORAL DIAGNOSTIC ND EDG TRANSORAL BIOPSY SINGLE/MULTIPLE ND EGD ABLATE TUMOR POLYP/LESION W/DILATION& WIRE COLONOSCOPY ESOPHAGOGASTRODUODENOSCOPY Referral ID Status Reason Start Date Expiration Date Visits Re quested Visits Authorized [id number] 1 1 Encounter Details Date Type Department Care Team (Late st Contact Info) Description 12/10/2024 Hospital Encounter [facility] Endoscopy Admitting Dept Virtual Department [address] [place] [address] Marco Vela MD [address] [place] [phone] [email or web address] Social History Tobacco Use Types Packs/Day Years [...] on filedocumented in this encounter Care Teams Papier Mache Molder Relationship Specialty Start Date End Date Dina Guzman NP [address] [place] [phone] [email or web address] PCP - General Nurse Practitioner 12/08/24 documented as of this encounter Additional Source Comments The information contained in this document represents components of the legal health record. It is not the complete legal health record.[facility]
--- OUTSIDE RECORDS SUMMARY | 2025-03-15 17:41 | XMS_ITS | Encounter Summary ---
Author Organization [facility] Address [address] [place] [phone] Phone Care Team Providers Care Upper Tier Name Role Phone Karen Fuentes MD Primary Care Provide r Mariel Andrews SERVICE ENGINE REPAIRER Primary Care Provider [phone] Pcp, Unknown Primary Care Provider Dina Stinson SERVICE ENGINE REPAIRER Primary Care Pro vider Encounter Details Date Type Department Care Team (Latest Contact Info) Description 11/02/2021 Transcribe Orders Virtual Department [address] [place] [address] Ruth Lerma NP [address] [place] [address] [email or web address] (dyspnea on exertion) (Primary Dx) Social [...] exertion)- Primary Other dyspnea and respiratory abnormality documented in this encounter Care Teams Upper Tier Relationship Specialty Start Date End Date Karen Fuentes MD [address] [place] [address], [place] [address] PCP - General Internal Medicine 03/14/21 11/28/24 Mariel Andrews NP [address] [place] [address] [place] [address] PCP - General Nurse Practitioner 11/29/24 12/06/24 Pcp, Unknown PCP - General 12/07/24 12/07/24 Dina Guzman NP [address] [place] [address] [email or web address] PCP - General Nurse Practitioner 12/08/24 documented as of this encounter Additional Source Comments The information contained in this document represents components of the legal health record. It is not the complete legal health record.[facility]
== END 2025-03-15 14:23 | disposition home or self-care (01) ==
LOC: HO.HMCHD 13:53
PROVIDERS: PCP Student in an Organized Health Care Education/Training Program; Visit Provider Student in an Organized Health Care Education/Training Program
DX: M79.642 Pain in left hand (principal); R30.0 Dysuria; Z23 Encounter for immunization

== ENCOUNTER 2025-03-15 13:53 | Outpatient (REF) | payer BC, SELFPAY ==
--- NOTE | ~2025-03-15 | XR_ITS ---
EXAMINATION: XR WRIST 3 OR MORE VIEWS LEFT, XR HAND 3 OR MORE VIEWS LEFT HISTORY: M79.642 - Pain in left hand COMPARISON: There are no prior studies available for comparison. FINDINGS: Seven views of the left hand and wrist, including a scaphoid view are submitted. Osseous mineralization is normal. There is no fracture or dislocation. The joint spaces are preserved. The soft tissues are unremarkable. XR/XR wrist LT min 3V IMPRESSION: Unremarkable examination of the left hand and wrist. Electronically signed by: Junito Hernandez MD 03/15/2025 03:02 PM [facility]
--- NOTE | ~2025-03-15 | XR_ITS ---
EXAMINATION: XR WRIST 3 OR MORE VIEWS LEFT, XR HAND 3 OR MORE VIEWS LEFT HISTORY: M79.642 - Pain in left hand COMPARISON: There are no prior studies available for comparison. FINDINGS: Seven views of the left hand and wrist, including a scaphoid view are submitted. Osseous mineralization is normal. There is no fracture or dislocation. The joint spaces are preserved. The soft tissues are unremarkable. XR/XR hand LT min 3V IMPRESSION: Unremarkable examination of the left hand and wrist. Electronically signed by: Junito Hernandez MD 03/15/2025 03:02 PM [facility]
== END 2025-03-15 13:54 | disposition home or self-care (01) ==
LOC: HO.XRAY 13:53
PROVIDERS: PCP Student in an Organized Health Care Education/Training Program; Visit Provider Student in an Organized Health Care Education/Training Program
DX: M79.642 Pain in left hand (principal); Z23 Encounter for immunization
CPT/HCPCS: 73110; 73130; 90471; 90656

== ENCOUNTER → 2025-03-15 14:30 | Outpatient (BNV) | payer BC, SELFPAY | PROVIDERS: PCP Student in an Organized Health Care Education/Training Program; Visit Provider Radiology Diagnostic Radiology | DX: M79.642 Pain in left hand (principal) | CPT/HCPCS: 73110; 73130 ==